=== PATIENT | male | born 1970 | race Caucasian/White ===

== ENCOUNTER 2016-08-01 15:25 | Emergency (ER) | payer MEDICAID ==
[2016-08-01 15:38] VITALS: PULSE 92; RESP 16; TEMP 97.7; O2SAT 97
[2016-08-01] MEDS ORDERED: CHLORDIAZEPOXIDE 25MG PREPK#6 BTL TAKEHOME ONE (15:44)
--- NOTE | 2016-08-01 15:45 | EDPHY ---
HPI/HX/ROS/PE/MDM Narrative: CHIEF COMPLAINT: Alcohol withdrawal HPI: The patient is a 46-year-old male with history of alcoholism and seizure disorder. He was driven to the [facility] prior to arrival by his roommate in order to detox from alcohol. The patient was then sent from the [facility] to the ED to obtain Librium to help withdrawal symptoms. The patient denies any seizure today. He expresses a desire to stop using alcohol. REVIEW OF SYSTEMS: Aside from elements discussed in the HPI, a comprehensive 10-point review of systems was reviewed and is negative. PMH: Alcoholism, seizure disorder, takes Tegretol. SOCIAL HISTORY: Admits to alcohol abuse. PHYSICAL EXAM: General:Patient is alert, in no acute distress. ENT:Eyes are normal to inspection. ENT inspection normal. Neck: Normal inspection. Full range of motion. Respiratory:No respiratory distress. Breath sounds normal bilaterally. Cardiovascular: Regular rate and rhythm. Strong peripheral pulses. Normal cap refill. Abdomen:The abdomen is nontender to palpation. There are no peritoneal signs. There are normal bowel sounds. Back: Normal to inspection. No tenderness to palpation. Skin: Normal color. No rash. Warm and dry. Extremities: Normal appearance. Full range of motion. Neuro: Oriented x3. Normal motor function. Normal sensory function. General Time Seen by Provider: 08/01/16 15:34 Initial Vital Signs: Initial Vital Signs Temperature (C) 36.5 C 08/01/16 15:25 Heart Rate 92 08/01/16 15:25 Respiratory Rate 16 08/01/16 15:25 Blood Pressure 122/74 H 08/01/16 15:25 O2 Sat (%) 97 08/01/16 15:25 O2 Delivery Mode Room Air Allergies/Adverse Reactions: gael Allergy (Severe, Verified 08/01/16 15:36) Anaphylaxis Home Medications: Medication Instructions Recorded QUEtiapine FUMARATE [SEROquel] 300 mg PO HS 06/08/15 traZODone [traZODONE 100MG (RX)] 100 mg PO HS 06/08/15 Propranolol HCl [Inderal 20mg (*)] 20 mg PO 04/06/16 carBAMazepine [Tegretol (RX)] 200 mg PO 04/06/16 Departure - Departure Disposition: Home, Routine, Self-Care Clinical Impression: Alcohol dependence, Alcohol withdrawal Condition: Good Instructions: Alcohol Withdrawal (ED) Additional Instructions: Go directly back to the [facility]. Referrals: THUY WILLIAM [Other] - As per Instructions
[2016-08-01 16:17] VITALS: BP 111/90
== END 2016-08-01 15:55 | disposition home or self-care (01) ==
DX: F10.239 Alcohol dependence with withdrawal, unspecified (principal)